=== PATIENT | female | born 1965 | race Caucasian/White ===

== ENCOUNTER 2017-08-14 18:03 | Emergency (ER) | payer OTHER ==
[2017-08-14 18:11] VITALS: BP 145/95; PULSE 84; RESP 16; TEMP 98.6; O2SAT 97
== END 2017-08-14 19:01 | disposition left against medical advice (07) ==
DX: Z53.21 Procedure and treatment not carried out due to patient leaving prior to being seen by health care provider (principal)

== ENCOUNTER 2017-08-14 19:29 | Emergency (ER) | payer OTHER ==
[2017-08-14 19:48] VITALS: BP 143/91; PULSE 73; RESP 14; TEMP 98.6; O2SAT 96
--- NOTE | 2017-08-14 19:59 | EDPHY ---
H & P Time Seen by Provider: 08/14/17 19:42 HPI/ROS: CHIEF COMPLAINT: Left shoulder pain History by patient HISTORY OF PRESENT ILLNESS: 48-year-old woman presents complaining of pain in the left posterior shoulder after trying to lift a heavy box of laundry detergent by the handle up onto a shelf. She says that she had to stop because she developed pain in the left shoulder and left lateral neck area. There was no popping or sudden weakness or giving of the shoulder. She has tried taking Tylenol 250 mg with no relief. 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 She denies any numbness tingling or weakness in the arm. She says she can't take ibuprofen because of her Crohn's disease medicine. REVIEW OF SYSTEMS: As in HPI, and all other systems reviewed and are negative Smoking Status: Never smoked Physical Exam: General Appearance: Alert and no distress. Eyes: Pupils equal and round no injection. Musculoskeletal: Neck is supple with full range of motion and no bony tenderness but with some tenderness along the lower left trapezius Extremities: Left shoulder with full range of motion without difficulty or pain. No obvious deformity. Patient has some mild posterior tenderness. There is no clavicular tenderness or AC joint tenderness. Patient has full extension, flexion and AB duction against resistance. Ulnar, median and radial nerves are intact sensory and motor. Radial pulses 2+ and equal to the right Skin: No rashes or lesions except as described above. Constitutional: Initial Vital Signs Temperature (C) 37 C 08/14/17 19:44 Heart Rate 73 08/14/17 19:44 Respiratory Rate 14 08/14/17 19:44 Blood Pressure 143/91 H 08/14/17 19:44 O2 Sat (%) 96 08/14/17 19:44 O2 Delivery Mode Room Air Allergies/Adverse Reactions: Penicillins Allergy (Verified 08/14/17 19:44) Home Medications: Medication Instructions Recorded Lialda 08/14/17 Lidocaine 5% [Lidoderm 5% Patch 1 ea TD DAILY #30 patch 08/14/17 (*)] MDM/Departure - MDM ED Course/Re-evaluation: [age] old woman presents with left shoulder pain after lifting a heavy box but with unremarkable exam and no evidence of significant injury or deformity. There is no evidence of neurologic or vascular impairment. We discussed conservative measures and home treatment with ice, adequate doses of Tylenol and topical lidocaine patches. Patient requested a note for work tomorrow which she has been given. I am recommending follow up with primary care physician as needed. - Depart Disposition: Home, Routine, Self-Care Clinical Impression: Left shoulder strain Qualifiers: Encounter type: initial encounter Qualified Code(s): S46.912A - Strain of unspecified muscle, fascia and tendon at shoulder and upper arm level, left arm , initial encounter Condition: Good Instructions: Shoulder Pain (ED) Additional Instructions: You were seen by Dr. Soledad Gonzalez today. There is no evidence of serious injury. Your symptoms will improve over time. You may take Tylenol 1000 mg up to 4 times a day. Try icing the area and using topical lidocaine patches for pain. Return for any worsening or new concerns. Stand Alone Forms: Work Excuse Prescriptions: Lidocaine 5% [Lidoderm 5% Patch (*)] 1 ea TD DAILY #30 patch Referrals: NONE *PRIMARY CARE P,. [Primary Care Provider] - As per Instructions
== END 2017-08-14 20:12 | disposition home or self-care (01) ==
LOC: CED 19:29
DX: S46.912A Strain of unspecified muscle, fascia and tendon at shoulder and upper arm level, left arm, initial encounter (principal); X58.XXXA Exposure to other specified factors, initial encounter